=== PATIENT | female | born 1970 | race Caucasian/White ===

== ENCOUNTER 2024-12-05 03:00 | Emergency (ER) | payer MEDICAID | END 2024-12-05 06:03 | disposition home or self-care (01) | LOC: JP.ED 03:00 | DX: S00.03XA Contusion of scalp, initial encounter (principal); F17.200 Nicotine dependence, unspecified, uncomplicated; Z79.899 Other long term (current) drug therapy; W19.XXXA Unspecified fall, initial encounter; Y93.K1 Activity, walking an animal | CPT/HCPCS: 70450; 71046; 99284; A9270; 99283 ==